=== PATIENT | female | born 1975 | race Caucasian/White ===

== ENCOUNTER 2024-03-07 08:08 | Outpatient (CLI) | payer OTHER, SELFPAY ==
--- NOTE | ~2024-03-07 | NM_ITS ---
EXAMINATION: NM shima stress w perfusion DATE: 03/07/2024 12:13 INDICATION: Chest pain. Dyspnea. TECHNIQUE: Rest images were obtained following intravenous administration of 9.9 mCi Tc99m tetrofosmi n (Myoview). The patient was infused intravenously with Lexiscan (Regadenoson). Then, 32 mCi Tc99m te trofosmin (Myoview) was administered intravenously, and stress images were obtained. Data was reconst ructed into short axis and horizontal and vertical long axis SPECT images. Gated SPECT images were al so obtained. COMPARISON: None. FINDINGS: There is no definite reversible or fixed perfusion abnormality to suggest ischemia or infar ction. There is normal left ventricular chamber size, wall motion and ejection fraction. Left ventr icular ejection fraction measures 61%. IMPRESSION: 1. Normal myocardial perfusion during stress. 2. Left ventricular ejection fraction measuring 61%. Reviewed, dictated and finalized at location A.
--- NOTE | 2024-03-07 08:49 | ECHO_ITS ---
Patient Info Name: Angela Julian Age: 49 years : 1975 Gender: Female Ht: 66 in Wt: 220 lbs BSA: 2.20 m2 HR: 88 bpm BP: 146 / 88 mmHg Technical Quality: Fair Exam Date: 03/07/2024 8:59 AM Exam Location: Echo Lab Patient Status: Outpatient Admit Date: 03/07/2024 Staff Ordering Physician: Antoine Amos DO [employer] Fire Watcher: Tammy Renee RDCS Attending Provider: Antoine Amos DO Referring Physician: Dandre WIN; Exam Type: CA echo doppler w bubble study Study Info Indications R06.09 - Other forms of dyspnea Complete two-dimensional, color flow and Doppler transthoracic echocardiogram is performed with agitated saline. Contrast/Agitated Saline Contrast/Ag. Saline: Agitated Saline Amount: 20.00 ml Administered By: Sarah Perez RDCS Existing IV Access: Yes IV Access Condition: patent with no signs of infiltration Site Condition: IV removed Summary 1. Left ventricular chamber dimension is normal. 2. Left ventricular systolic function is normal, estimated at 60-65%. 3. The left ventricular diastolic function is grade I diastolic dysfunction. 4. E/e' 10 is mildly elevated. 5. Right ventricular systolic function is severely reduced. 6. Right ventricular chamber dimension is severely enlarged. 7. Right atrial chamber dimension is severely enlarged. 8. Atrial septum bowing to left side suggests high right atrial pressure. 9. Agitated saline injection with and without valsalva maneuver opacified right side cardiac chambers and hypolucent area adjacent to right atrial septum with shunt to left side cardiac chambers suggesting atrial septal defect more than patent foramen ovale. 10. Suspected atrial septal defect visualized by 2D and agitated saline imaging. 11. There is mild to moderate tricuspid valve regurgitation. 12. Severe pulmonary hypertension, estimated pulmonary arterial systolic pressure is 83 mmHg. Left Ventricle E/e' 10 is mildly elevated. Left ventricular chamber dimension is normal. Left ventricular systolic function is normal, estimated at 60-65%. The left ventricular diastolic function is grade I diastolic dysfunction. Right Ventricle Right ventricular systolic function is severely reduced. Right ventricular chamber dimension is severely enlarged. Left Atria Left atrial chamber dimension is normal. Right Atria Right atrial chamber dimension is severely enlarged. Atrial Septum Atrial septum bowing to left side suggests high right atrial pressure. Agitated saline injection with and without valsalva maneuver opacified right side cardiac chambers and hypolucent area adjacent to right atrial septum with shunt to left side cardiac chambers suggesting atrial septal defect more than patent foramen ovale. Suspected atrial septal defect visualized by 2D and agitated saline imaging. Aortic Valve The aortic valve is trileaflet. There is no aortic valve stenosis. There is no aortic valve regurgitation. Pulmonic Valve There is no pulmonic regurgitation. Mitral Valve There is no mitral valve stenosis. There is no mitral valve regurgitation. Tricuspid Valve There is mild to moderate tricuspid valve regurgitation. Severe pulmonary hypertension, estimated pulmonary arterial systolic pressure is 83 mmHg. Pericardium/Pleural There is no pericardial effusion. Inferior Vena Cava Normal inferior vena cava with >50% collapse upon inspiration consistent with normal right atrial pressure, 5 mmHg. Aorta The aortic root size at the sinus of Valsalva is normal. Left Ventricular Outflow Tract ------
--- NOTE | 2024-03-07 09:28 | EST_ITS ---
Patient Info Name: Angela Julian Age: 49 years : 1975 Gender: Female Ht: 66 in Wt: 235 lbs BSA: 2.28 m2 HR: 83 bpm BP: 155 / 98 mmHg Exam Date: 03/07/2024 10:48 AM Exam Location: Echo Lab Patient Status: Outpatient Admit Date: 03/07/2024 Staff Ordering Physician: Antoine Amos DO Attending Provider: Antoine Amos DO Exercise Technologist: Augustina Doll CT Exercise Physician: Antoine Amos DO Exam Type: CA stress shima w NM Study Info Indications R06.09 - Other forms of dyspnea A regadenoson stress test was performed. Summary 1. 1. Negative lexiscan stress test for ischemic ST changes by ECG criteria. 2. 2. Baseline hypertension. 3. 3. Nuclear scan to follow and will be reported separately. Please correlate with it. 4. 4. Patient informed of the above results. Protocol: Lexiscan Stress ECG Details Stage: REST Duration (min): 1 min : 1 sec HR (bpm): 84 SBP (mmHg): 155 DBP (mmHg): 98 Stage: REST Duration (min): 5 min : 43 sec HR (bpm): 89 SBP (mmHg): 155 DBP (mmHg): 98 Stage: STAGE 1 Duration (min): 1 min : 0 sec HR (bpm): 102 SBP (mmHg): 151 DBP (mmHg): 105 Stage: RECOVERY Duration (min): 1 min : 0 sec HR (bpm): 106 SBP (mmHg): 151 DBP (mmHg): 105 Stage: RECOVERY Duration (min): 2 min : 0 sec HR (bpm): 96 SBP (mmHg): 151 DBP (mmHg): 105 Stage: RECOVERY Duration (min): 3 min : 0 sec HR (bpm): 92 SBP (mmHg): 150 DBP (mmHg): 98 Stage: RECOVERY Duration (min): 3 min : 11 sec HR (bpm): 92 SBP (mmHg): 150 DBP (mmHg): 98 Rest HR: 89 bpm Peak HR: 108 bpm Rest Sys BP: 155 mmHg Peak Sys BP: 151 mmHg Max Pred HR: 169 bpm % Max Pred HR: 64 % Target HR: 144 bpm Max RPP: 16,308 bpm*mmHg Termination Reason: Completed protocol Cardiac Symptoms: Shortness of breath Total Time: 1 min : 0 sec Rest High BP: 98 mmHg Peak High BP: 105 mmHg Total Dose: 0.4 mg Resting ECG Sinus rhythm, ST-T wave abnormality in anterolat/inf leads- consider ischemia. Stress ECG No worsening of ST segments with stress test. Arrhythmias None. Report Signatures
[2024-03-07 12:11] LABS: Basophils Absolute Auto 0.1 K/mm3 (0.0-0.1); Basophils Percent Auto 0.7 % (0.2-1.2); Eosinophils Percent Auto 0.3 % (0-4.4); Hematocrit 50.2 % (37.0-47.0); Hemoglobin 16.4 g/dL (12.0-15.0); Immature Granulocyte Absolute 0.05 K/mm3 (0.00-0.031); Immature Granulocyte Percent A 0.4 % (0-0.5); Lymphocytes Absolute Auto 2.77 K/mm3 (0.9-3.2); Mean Corpuscular HGB Conc 32.7 g/dl (32-36); Mean Corpuscular Hemoglobin 28.7 pg (26-34); Mean Corpuscular Volume 87.9 fl (80-100); Mean Platelet Volume 9.4 fl (7.4-10.4); Monocytes Absolute Auto 0.4 K/mm3 (0.1-0.6); Monocytes Percent Auto 3.4 % (2.6-8.5); Neutrophils Absolute Auto 8.7 K/mm3 (1.3-6.7); Neutrophils Percent Auto 72.2 % (45.5-73.1); Platelet Count Result 326 k/mm3 (150-375); Red Blood Count 5.71 M/mm3 (4.2-5.4); Red Cell Distribution Width 15.6 % (11.5-14.5)
[2024-03-07 12:21] LABS: Alanine Aminotransferase 13 U/L (6-35); Albumin Level 4.2 g/dL (3.5-5.1); Alkaline Phosphatase 100 U/L (38-126); Anion Gap 12 mmol/L (4-12); Aspartate Amino Transferase 16 U/L (14-36); Bilirubin,Total 1.1 mg/dL (0.2-1.3); Blood Urea Nitrogen 11 mg/dL (7-17); Calcium 8.9 mg/dL (8.4-10.2); Carbon Dioxide 20 mmol/L (22-30); Chloride 108 mmol/L (98-107); Cholesterol 189 mg/dL (0-200); Estimated Glomerular Filt Rate > 60; Glucose 158 mg/dL (65-110); HDL Direct 26 mg/dL; Potassium 3.1 mmol/L (3.4-5.0); Sodium 140 mmol/L (137-145); Triglycerides 199 mg/dL (<150)
[2024-03-07 12:33] LABS: LDL Cholesterol Direct 143 mg/dL
[2024-03-07 12:59] LABS: Hemoglobin A1C 6.5 % (<5.7)
== END 2024-03-07 08:09 | disposition home or self-care (01) ==
PROVIDERS: PCP Physician Assistant; Visit Provider Internal Medicine Cardiovascular Disease
DX: R06.09 Other forms of dyspnea (principal); E78.5 Hyperlipidemia, unspecified; E07.9 Disorder of thyroid, unspecified
CPT/HCPCS: 36415; 78452; 80053; 80061; 83036; 84443; 85025; 93017; 93306; 96375; A9502; J2785